=== PATIENT | male | born 1995 | race Caucasian/White ===

== ENCOUNTER 2018-06-19 01:29 | Emergency (ER) | payer OTHER ==
[2018-06-19] MEDS: LORAZEPAM 0.5 MG TAB PO (07:32)
== END 2018-06-19 08:21 | disposition home or self-care (01) ==
LOC: FTE 01:29
DX: F41.9 Anxiety disorder, unspecified (principal)
CPT/HCPCS: 71045; 93005; 99284-25